=== PATIENT | male | born 1975 | race Caucasian/White ===

== ENCOUNTER 2017-10-25 10:50 | Emergency (ER) | payer SELFPAY ==
--- NOTE | 2017-10-25 11:18 | EDM.PDOC ---
ED HPI GENERAL MEDICAL PROBLEM - General Chief Complaint: ENT Problem Stated Complaint: [id number] SINUS INFECTION/ EYE Time Seen by Provider: 10/25/17 11:13 Source of Information: Reports: Patient History Limitations: Reports: No Limitations - History of Present Illness INITIAL COMMENTS - FREE TEXT/NARRATIVE: Patient complains of gradually worsening left frontal sinus pain and pressure. Complains of blurry vision. Pain over the eye. No recent cough. Denies fever chills. Denies ear pain or pressure. No complaints of neck symptoms. Notes exposure to people at work that it been ill. No difficulty with sore throat or difficulty swallowing. Duration: Hour(s): Location: Reports: Face Quality: Reports: Pressure Context: Reports: Sick Contact Associated Symptoms: Reports: No Other Symptoms Left Face Pain Score (Numeric/FACES): 8 - Related Data Allergies Allergy/AdvReac Type Severity Reaction Status Date / Time No Known Allergies Allergy Verified 10/25/17 10:55 Home Meds: Home Meds . [No Known Home Meds] 10/25/17 [History] Past Medical History - Past Health History Medical/Surgical History: Denies Medical/Surgical History Social & Family History - Tobacco Use Smoking Status *Q: Current Every Day Smoker Years of Tobacco use: 20 Packs/Tins Daily: 1 - Caffeine Use Caffeine Use: Reports: Soda - Recreational Drug Use Recreational Drug Use: No ED ROS ENT - Review of Systems Review Of Systems: See Below Constitutional: Reports: No Symptoms HEENT: Reports: Eye Pain, Sinus Problem. Denies: Ear Pain, Rhinitis Respiratory: Reports: No Symptoms Cardiovascular: Reports: No Symptoms : Reports: No Symptoms Musculoskeletal: Reports: No Symptoms Skin: Reports: No Symptoms Neurological: Reports: No Symptoms ED EXAM, ENT - Physical Exam Exam: See Below Exam Limited By: No Limitations General Appearance: Alert, No Apparent Distress Eye Exam: Bilateral Eye: EOMI, Normal Inspection, PERRL Ears: Normal TMs Nose: Normal Inspection, No Blood Mouth/Throat: Normal Inspection, Normal Oropharynx Head: Atraumatic, Normocephalic, Other (Tender to palpation over the left orbital sinus. No tenderness to the left maxillary sinus. No pain to the temporomandibular joint bilaterally. Patient complains of pain palpating the left eye however does not feel very firm or tense ) Neck: Full Range of Motion. No: Lymphadenopathy (L), Lymphadenopathy (R) Respiratory/Chest: No Respiratory Distress, Lungs Clear Cardiovascular: Normal Peripheral Pulses, Regular Rate, Rhythm Skin: Warm, Dry, Intact Course - Vital Signs Last Recorded V/S: Last Vital Signs Temp 99.4 F 10/25/17 11:00 Pulse 104 H 10/25/17 11:00 Resp 16 10/25/17 11:00 BP 141/85 H 10/25/17 11:00 Pulse Ox 98 10/25/17 11:00 - Orders/Labs/Meds Orders: Active Orders 24 hr Category Date Time Status Ltd Follow Up Study [CT] Urgent Exams 10/25/17 11:17 Stop Req Labs: Laboratory Tests 10/25/17 Range/Units 11:23 WBC 11.6 H (5.0-10.0) 10^3/uL RBC 5.61 (4.6-6.2) 10^6/uL Hgb 14.6 (14.0-18.0) g/dL Hct 45.5 (40.0-54.0) % MCV 81.1 (80-100) fL MCH 26.0 L (27.0-34.0) pg MCHC 32.1 L (33.0-35.0) g/dL Plt Count 255 (150-450) 10^3/uL Neut % (Auto) 68.9 (42.2-75.2) % Lymph % (Auto) 18.0 L (20.5-50.1) % Wilkinson % (Auto) 10.5 H (2-8) % Eos % (Auto) 2.3 (1.0-3.0) % Baso % (Auto) 0.3 (0.0-1.0) % Add Manual Diff Yes Neutrophils % (Manual) 67 (42-75) % Lymphocytes % (Manual) 16 L (20-50) % Monocytes % (Manual) 12 H (2-8) % Eosinophils % (Manual) 3 (1-3) % Myelocytes % 2 Meds: Medications Discontinued Medications Generic Name Dose Route Start Last Admin Trade Name Freq PRN Reason Stop Dose Admin Ceftriaxone Sodium 500 mg 10/25/17 12:22 Rocephin IM 10/25/17 12:23 ONETIME ONE - Radiology Interpretation Free Text/Narrative:: Sinus CT scan shows acute sinusitis left side. Findings are discussed with patient. He is to receive Rocephin IM. Departure - Departure Time of Disposition: 12:26 Disposition: Home, Self-Care 01 Condition: Good Clinical Impression: Sinusitis, acute Qualifiers: Sinusitis location: pansinusitis Recurrence: non-recurrent Qualified Code(s): J01.40 - Acute pansinusitis, unspecified - Discharge Information Instructions: Sinusitis, Adult, [id number] Forms: ED Department Discharge, ED Return to Work/School Form - My Orders Last 24 Hours: My Active Orders 10/25/17 11:17 Ltd Follow Up Study [CT] Urgent - Assessment/Plan Last 24 Hours: My Active Orders 10/25/17 11:17 Ltd Follow Up Study [CT] Urgent
--- NOTE | 2017-10-25 12:18 | CT ---
Clinical history: 42-year-old male smoker planning of left frontal (orbital) pain. TECHNIQUE: Volume acquisition of data emergency unenhanced CT scan of the facial bones, paranasal and mastoid sinuses obtained while the patient was lying supine on the Siemens multi slice CT scanner [facility]. All data archived in the PACS system for storage, reform atting axial/sagittal/coronal planes and study. Interpretation: Abnormal. 1. *Extensive mucoperiosteal thickening involving the maxillary and ethmoid sinuses bilaterally, sphe noid sinus on the right.... with a dependent air-fluid level (acute sinusitis) frontal sinus, on the left. 2. Symmetric normal appearing optic globes and retrobulbar optic nerves. 3. No bony wall destruction. Nasal septum is straight in the midline. 4. Symmetric clear pneumatization of the mastoid sinuses. Normal TMJs. Upper 4 cervical vertebra unre markable. CONCLUSION: Acute left frontal sinusitis (evidence of chronic pansinusitis).
[2017-10-25] MEDS ORDERED: cefTRIAXone 500 MG Vial IM ONE (12:22)
== END 2017-10-25 12:37 | disposition home or self-care (01) ==
LOC: DL.ED 10:50
DX: J01.40 Acute pansinusitis, unspecified (principal); F17.210 Nicotine dependence, cigarettes, uncomplicated
CPT/HCPCS: 36415; 70486; 85025; 96372; 99284; J0696